=== PATIENT | male | born 1990 | race African-American/Black ===

== ENCOUNTER 2018-02-19 21:34 | Emergency (ER) | payer SELFPAY ==
[~2018-02-19] VITALS: Ht 182.9 cm; Wt 68.0 kg
[2018-02-19 21:50] LABS: BASO # 0.1 x10^3/uL (0.0-0.2); BASO % 1 % (0-3); EOS # 0.3 x10^3/uL (0.0-0.7); EOS % 3 % (0-3); HEMATOCRIT 42.8 % (39.0-53.0); HEMOGLOBIN 14.6 g/dL (13.0-17.5); LYMPH # 2.6 x10^3/uL (1.0-4.8); LYMPH % 27 % (24-48); MEAN CORPUSCULAR HEMOGLOBIN 28 pg (25-35); MEAN CORPUSCULAR HGB CONC 34 g/dL (31-37); MEAN CORPUSCULAR VOLUME 83 fL (79-100); MONO % 10 % (0-9); NEUT # 5.5 x10^3uL (1.8-7.7); NEUT % 58 % (31-73); PLATELET COUNT 266 x10^3/uL (140-400); RED BLOOD COUNT 5.15 x10^6/uL (4.30-5.70); RED CELL DISTRIBUTION WIDTH 23.9 % (11.5-14.5); WHITE BLOOD COUNT 9.5 x10^3/uL (4.0-11.0)
[2018-02-19 22:00] LABS: PROTHROMBIN TIME PATIENT 12.1 SEC (11.7-14.0)
[2018-02-19] MEDS ORDERED: fentaNYL PF VIAL 100 MCG/2 ML VIAL IV ONE (22:00)
[2018-02-19] MEDS ORDERED: ASPIRIN CHEWABLE 81 MG TABLET. PO ONE (22:00)
[2018-02-19 22:03] LABS: CALCIUM 10.2 mg/dL (8.5-10.1); CREATININE 0.9 mg/dL (0.7-1.3); GFR 99.8; POTASSIUM 3.9 mmol/L (3.5-5.1)
[2018-02-19 22:04] LABS: D-DIMER < 0.27 ug/mlFEU (0.00-0.50)
--- NOTE | 2018-02-19 22:07 | RAD ---
AP portable chest 02/19/2018. Reason for exam: Left-sided chest pain and tachycardia. No infiltrate or effusion is seen. Heart size and pulmonary vascularity appear normal. IMPRESSION: No acute findings. Electronically signed by: Anam Suh Jr., MD (02/19/2018 10:03 PM) [facility]
[2018-02-19 22:09] LABS: ALBUMIN 4.3 g/dL (3.4-5.0); ALBUMIN/GLOBULIN RATIO 0.8 (1.0-1.7); TOTAL BILIRUBIN 0.6 mg/dL (0.2-1.0); TOTAL PROTEIN 9.7 g/dL (6.4-8.2)
[2018-02-19 22:11] LABS: ANISOCYTOSIS MOD; PLT ESTIMATE ADEQUATE (ADEQUATE)
[2018-02-19 22:12] LABS: OVALOCYTES FEW
[2018-02-19 22:29] LABS: AMPHETAMINE/METHAMPHETAMINE NEG (NEG); BARBITURATES NEG (NEG); BENZODIAZEPINES NEG (NEG); CANNABINOIDS NEG (NEG); COCAINE NEG (NEG); METHADONE NEG (NEG); OPIATES NEG (NEG); PHENCYCLIDINE NEG (NEG)
--- NOTE | 2018-02-19 22:43 | PHYS DOC ---
Past Medical History Past Medical History: Hypertension, Schizophrenia Past Surgical History: No Surgical History Alcohol Use: Occasionally Additional Information: TOLD THIS RN PT. DOES NOT DRINK ETOH, TOLD DR. STEWART HE DOES DRINK ETOH Drug Use: None Adult General Chief Complaint Chief Complaint: CHEST PAIN HPI HPI Patient is a 27 year old M WITH CC OF CP SHARP PRESSURE LEFT SIDE. NONRADIATING Onset 1 hour ago while watching TV. He has a history of this in the past he was seen at [facility] last year he had a treadmill test the CT scan he tells me was normal. He says that he has mild shortness of breath no headache he denies any drugs he does smoke cigarettes. He doesn't history of schizophrenia apparently. No abdominal pain pain is nonradiating he says it is sharp worse with deep breathing. Review of Systems Review of Systems Constitutional: Denies fever or chills [] Eyes: Denies change in visual acuity, redness, or eye pain [] HENT: Denies nasal congestion or sore throat [] Respiratory: Denies cough or shortness of breath [] Cardiovascular: : Denies dysuria or hematuria [] Musculoskeletal: Denies back pain or joint pain [] Integument: Denies rash or skin lesions [] All other systems were reviewed and found to be within normal limits, except as documented in this note. Current Medications Current Medications Current Medications Medications (Trade) Dose Ordered Sig/Lulu Start Time Stop Time Status Last Admin Dose Admin Aspirin (Children'S Aspirin) 324 mg 1X ONCE 02/19/18 22:00 02/19/18 22:01 DC 02/19/18 21:59 324 MG Fentanyl Citrate (Fentanyl 2ml Vial) 50 mcg 1X ONCE 02/19/18 22:00 02/19/18 22:01 DC 02/19/18 22:00 50 MCG Allergies Allergies Allergies Coded Allergies Type Severity Reaction Last Updated Verified No Known Drug Allergies 02/19/18 No Physical Exam Physical Exam Constitutional: Well developed, well nourished, no acute distress, non-toxic appearance. [] HENT: Normocephalic, atraumatic, bilateral external ears normal, oropharynx moist, no oral exudates, nose normal. [] Eyes: PERRLA, EOMI, conjunctiva normal, no discharge. [] Neck: Normal range of motion, no tenderness, supple, no stridor. [] Cardiovascular:Heart rate regular rhythm, no murmur [] Lungs & Thorax: Bilateral breath sounds clear to auscultation []chest wall tenderness is reproducible on the left Abdomen: Bowel sounds normal, soft, no tenderness, no masses, no pulsatile masses. [] Skin: Warm, dry, no erythema, no rash. [] Back: No tenderness, no CVA tenderness. [] Extremities: No tenderness, no cyanosis, no clubbing, ROM intact, no edema. [] Neurologic: Alert and oriented X 3, normal motor function, normal sensory function, no focal deficits noted. [] Psychologic: Blunted affect BUT IS CALM AND COOPERATIVE WITH NO TANGENTIAL THIONKING. HE IS ABLE TO PROVIDE CLEAR HISTORY AND APPEARS OF SOUND MIND OVERALL Current Patient Data Vital Signs Vital Signs Date Time Temp Pulse Resp B/P (MAP) Pulse Ox O2 Delivery O2 Flow Rate FiO2 02/19/18 22:44 99 18 148/70 (96) 97 Room Air 02/19/18 21:34 98.1 98.1 Lab Values Laboratory Tests Test 02/19/18 21:40 02/19/18 22:07 White Blood Count 9.5 x10^3/uL (4.0-11.0) Red Blood Count 5.15 x10^6/uL (4.30-5.70) Hemoglobin 14.6 g/dL (13.0-17.5) Hematocrit 42.8 % (39.0-53.0) Mean Corpuscular Volume 83 fL (79-100) Mean Corpuscular Hemoglobin 28 pg (25-35) Mean Corpuscular Hemoglobin Concent 34 g/dL (31-37) Red Cell Distribution Width 23.9 % (11.5-14.5) H Platelet Count 266 x10^3/uL (140-400) Neutrophils (%) (Auto) 58 % (31-73) Lymphocytes (%) (Auto) 27 % (24-48) Monocytes (%) (Auto) 10 % (0-9) H Eosinophils (%) (Auto) 3 % (0-3) Basophils (%) (Auto) 1 % (0-3) Neutrophils # (Auto) 5.5 x10^3uL (1.8-7.7) Lymphocytes # (Auto) 2.6 x10^3/uL (1.0-4.8) Monocytes # (Auto) 1.0 x10^3/uL (0.0-1.1) Eosinophils # (Auto) 0.3 x10^3/uL (0.0-0.7) Basophils # (Auto) 0.1 x10^3/uL (0.0-0.2) Platelet Estimate Adequate (ADEQUATE) Anisocytosis Mod Ovalocytes Few Prothrombin Time 12.1 SEC (11.7-14.0) Prothrombin Time INR 0.9 (0.8-1.1) D-Dimer ([place]) < 0.27 ug/mlFEU Sodium Level 139 mmol/L (136-145) Potassium Level 3.9 mmol/L (3.5-5.1) Chloride Level 100 mmol/L (98-107) Carbon Dioxide Level 29 mmol/L (21-32) Anion Gap 10 (6-14) Blood Urea Nitrogen 10 mg/dL (8-26) Creatinine 0.9 mg/dL (0.7-1.3) Estimated GFR (Cockcroft-Gault) 99.8 BUN/Creatinine Ratio 11 (6-20) Glucose Level 123 mg/dL (70-99) H Calcium Level 10.2 mg/dL (8.5-10.1) H Total Bilirubin 0.6 mg/dL (0.2-1.0) Aspartate Amino Transferase (AST) 72 U/L (15-37) H Alanine Aminotransferase (ALT) 150 U/L (16-63) H Alkaline Phosphatase 122 U/L (46-116) H Troponin I Quantitative 0.047 ng/mL (0.000-0.055) [id number]-[id number]-Type Natriuretic Peptide 10 pg/mL (0-124) Total Protein 9.7 g/dL (6.4-8.2) H Albumin 4.3 g/dL (3.4-5.0) Albumin/Globulin Ratio 0.8 (1.0-1.7) L Ethyl Alcohol Level < 10 mg/dL (0-10) Urine Opiates Screen Neg (NEG) Urine Methadone Screen Neg (NEG) Urine Barbiturates Neg (NEG) Urine Phencyclidine Screen Neg (NEG) Urine Amphetamine/Methamphetamine Neg (NEG) Urine Benzodiazepines Screen Neg (NEG) Urine Cocaine Screen Neg (NEG) Urine Cannabinoids Screen Neg (NEG) Urine Ethyl Alcohol Neg (NEG) Laboratory Tests 02/19/18 21:40 Laboratory Tests 02/19/18 21:40 EKG EKG [] Interpretation Time: Normal sinus rhythm rate of 105. There is ST elevation very likely to be J point in V2 with an RSR prime pattern. I did review this with Dr. Rankin agrees abnormal EKG likely not STEMI criteria at this time recommends repeat EKG and lab testing. Second EKG reviewed by me at 10:30 PM did show persistent ST elevation in lead V2 only J point more clearly now. Really no significant change from previous no STEMI no reciprocal changes. Radiology/Procedures Radiology/Procedures [] Impressions: Chest x-ray interpreted by me showed no pneumothorax normal cardiac silhouette. Course & Med Decision Making Course & Med Decision Making Pertinent Labs and Imaging studies reviewed. (See chart for details) []PT HAS abnormal ekg. it was rpeeated second one was stable. i did speak with ceci who recommended serial ekg and troponins. at 1120 pm, i was made aware that patient said he wanted to leave against medical advice unfortunately he is not forthcoming with the recently wants to leave right now. However did indicate with him the nature of his decision which includes the fact that we have not yet officially ruled out a myocardial infarction that could be potentially very dangerous up to and including fatal. He does appear to understand this I could not convince him to stay here. Overall of sound mind does not appear acutely intoxicated and I feel that he is able to make this decision. He was encouraged to come back any time. Dragon Disclaimer Dragon Disclaimer This electronic medical record was generated, in whole or in part, using a voice recognition dictation system. Departure Departure Impression: Primary Impression: Chest pain Disposition: 07 AGAINST MEDICAL ADVICE Condition: STABLE Referrals: NO PCP (PCP) YASMEEN STEWART MD Feb 19, 2018 22:43
[2018-02-19 22:44] VITALS: BP 148/70
--- NOTE | 2018-02-20 08:22 | EKG ---
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
== END 2018-02-19 23:18 | disposition left against medical advice (07) ==
LOC: ER 21:34
DX: R07.89 Other chest pain (principal); R06.02 Shortness of breath; R94.31 Abnormal electrocardiogram [ECG] [EKG]; I10 Essential (primary) hypertension; F17.210 Nicotine dependence, cigarettes, uncomplicated
CPT/HCPCS: 36415; 71045; 80053; 80307; 83880; 84484; 85025; 85379; 85610; 93005; 96374; 99284; G0480; J3010

== ENCOUNTER 2018-06-16 00:15 | Emergency (ER) | payer SELFPAY ==
[~2018-06-16] VITALS: Ht 180.3 cm; Wt 68.0 kg
[2018-06-16] MEDS ORDERED: ASPIRIN 325 MG TABLET PO ONE (01:00)
[2018-06-16] MEDS ORDERED: IV NORMAL SALINE 1000ML BAG 1,000 ML IV ONE (01:00)
[2018-06-16] MEDS ORDERED: KETOROLAC 15 MG/ML VIAL. IV ONE (01:30)
--- NOTE | 2018-06-16 02:27 | PHYS DOC ---
Past Medical History Past Medical History: Hypertension, Schizophrenia Past Surgical History: No Surgical History Alcohol Use: Occasionally Drug Use: None Adult General Chief Complaint Chief Complaint: CHEST PAIN HPI HPI Patient is a 27 year old white male presents to the ED with chest pain. States that it is in the left side of his chest and started 1.5 days ago. The pain radiates up to his neck and left arm. It is a 8/10 throbbing pain. There are no aggravating or alleviating factors. He has not tried anything to help with the symptoms. Symptoms do not vary per time of day. Review of Systems Review of Systems Constitutional: Denies fever or chills [] Eyes: Denies change in visual acuity, redness, or eye pain [] HENT: Denies nasal congestion or sore throat [] Respiratory: Denies cough or shortness of breath [] Cardiovascular: Admits chest pain. Denies palpitations. GI: Denies abdominal pain, nausea, vomiting, bloody stools or diarrhea [] : Denies dysuria or hematuria [] Musculoskeletal: Denies back pain or joint pain [] Integument: Denies rash or skin lesions [] Neurologic: Denies headache, focal weakness or sensory changes [] Complete other systems were reviewed and found to be within normal limits, except as documented in this note. Current Medications Current Medications Current Medications Medications (Trade) Dose Ordered Sig/Lulu Start Time Stop Time Status Last Admin Dose Admin Aspirin (Graham Aspirin) 325 mg 1X ONCE 06/16/18 01:00 06/16/18 01:01 DC 06/16/18 02:31 325 MG Ketorolac Tromethamine (Toradol 15mg Vial) 15 mg 1X ONCE 06/16/18 01:30 06/16/18 01:31 DC 06/16/18 02:31 15 MG Lorazepam (Ativan) 1 mg 1X ONCE 06/16/18 03:30 06/16/18 03:31 DC 06/16/18 04:15 1 MG Sodium Chloride 1,000 ml @ 1,000 mls/hr 1X ONCE 06/16/18 01:00 06/16/18 01:59 DC 06/16/18 02:31 1,000 MLS/HR Allergies Allergies Allergies Coded Allergies Type Severity Reaction Last Updated Verified No Known Drug Allergies 02/19/18 No Physical Exam Physical Exam Constitutional: Well developed, well nourished, no acute distress, non-toxic appearance. [] HENT: Normocephalic, atraumatic, nose normal. [] Eyes: EOMI, conjunctiva normal, no discharge. [] Neck: Normal range of motion, no tenderness, supple, no stridor. [] Cardiovascular: Left chest wall slightly tender to palpation. Heart rate regular rhythm, no murmur [] Lungs & Thorax: Bilateral breath sounds clear to auscultation [] Abdomen: Bowel sounds normal, soft, no tenderness, no masses, no pulsatile masses. [] Skin: Warm, dry, no erythema, no rash. [] Back: No tenderness, no CVA tenderness. [] Extremities: No tenderness, no cyanosis, no clubbing, ROM intact, no edema. [] Neurologic: Alert and oriented, normal motor function, normal sensory function, no focal deficits noted. [] Psychologic: Affect normal, judgement normal, mood normal. [] Current Patient Data Vital Signs Vital Signs Date Time Temp Pulse Resp B/P (MAP) Pulse Ox O2 Delivery O2 Flow Rate FiO2 06/16/18 00:16 98.3 76 20 153/73 (99) 97 Room Air 98.3 Lab Values Laboratory Tests Test 06/16/18 02:30 06/16/18 04:15 White Blood Count 8.6 x10^3/uL (4.0-11.0) Red Blood Count 5.30 x10^6/uL (4.30-5.70) Hemoglobin 15.4 g/dL (13.0-17.5) Hematocrit 47.1 % (39.0-53.0) Mean Corpuscular Volume 89 fL (79-100) Mean Corpuscular Hemoglobin 29 pg (25-35) Mean Corpuscular Hemoglobin Concent 33 g/dL (31-37) Red Cell Distribution Width 16.0 % (11.5-14.5) H Platelet Count 294 x10^3/uL (140-400) Neutrophils (%) (Auto) 47 % (31-73) Lymphocytes (%) (Auto) 38 % (24-48) Monocytes (%) (Auto) 9 % (0-9) Eosinophils (%) (Auto) 6 % (0-3) H Basophils (%) (Auto) 1 % (0-3) Neutrophils # (Auto) 4.0 x10^3uL (1.8-7.7) Lymphocytes # (Auto) 3.2 x10^3/uL (1.0-4.8) Monocytes # (Auto) 0.8 x10^3/uL (0.0-1.1) Eosinophils # (Auto) 0.5 x10^3/uL (0.0-0.7) Basophils # (Auto) 0.1 x10^3/uL (0.0-0.2) Sodium Level 138 mmol/L (136-145) Potassium Level 3.8 mmol/L (3.5-5.1) Chloride Level 100 mmol/L (98-107) Carbon Dioxide Level 29 mmol/L (21-32) Anion Gap 9 (6-14) Blood Urea Nitrogen 16 mg/dL (8-26) Creatinine 1.0 mg/dL (0.7-1.3) Estimated GFR (Cockcroft-Gault) 106.9 BUN/Creatinine Ratio 16 (6-20) Glucose Level 89 mg/dL (70-99) Calcium Level 9.6 mg/dL (8.5-10.1) Magnesium Level 2.1 mg/dL (1.8-2.4) Total Bilirubin 1.0 mg/dL (0.2-1.0) Aspartate Amino Transferase (AST) 37 U/L (15-37) Alanine Aminotransferase (ALT) 44 U/L (16-63) Alkaline Phosphatase 111 U/L (46-116) Creatine Kinase 918 U/L (39-308) H Creatine Kinase MB (Mass) 2.0 ng/mL (0.0-3.6) Creatine Kinase MB Relative Index 0.2 % (0-4) Troponin I Quantitative 0.036 ng/mL (0.000-0.055) 0.045 ng/mL (0.000-0.055) Total Protein 9.2 g/dL (6.4-8.2) H Albumin 3.9 g/dL (3.4-5.0) Albumin/Globulin Ratio 0.7 (1.0-1.7) L Lipase 66 U/L (73-393) L Ethyl Alcohol Level < 10 mg/dL (0-10) Laboratory Tests 06/16/18 02:30 Laboratory Tests 06/16/18 02:30 EKG EKG EKG taken on 06/16/2018 at 0021. Sinus rhythm 80 bpm. A right bundle branch block noted. No STEMI appreciated Radiology/Procedures Radiology/Procedures PROCEDURE: CHEST PA & LATERAL PA and lateral chest radiographs 06/16/2018 CLINICAL HISTORY: Cough and shortness of breath. PA and 2 lateral digital radiographs of chest were obtained. Comparison study is dated 02/19/2018. The cardiac and mediastinal silhouettes are within normal limits in size and configuration. No acute pulmonary infiltrate is seen. No pleural effusion or pneumothorax is noted. The osseous structures are grossly intact. IMPRESSION: No acute abnormality is seen. Electronically signed by: Dejan Philip MD (06/16/2018 3:44 AM) [facility] Course & Med Decision Making Course & Med Decision Making Pertinent Labs and Imaging studies reviewed. (See chart for details) Patient is a 27-year-old male presents to the ED with chest pain. CXR, trops, labs pending Dragon Disclaimer Dragon Disclaimer This electronic medical record was generated, in whole or in part, using a voice recognition dictation system. Departure Departure Impression: Primary Impression: Chest pain Disposition: HOME, SELF-CARE Condition: STABLE Referrals: NO PCP (PCP) Patient Instructions: Chest Pain (Nonspecific), [id number] Problem Qualifiers Primary Impression: Chest pain Chest pain type: unspecified Qualified Codes: R07.9 - Chest pain, unspecified NAVJOT SILVA DO Jun 16, 2018 02:27
[2018-06-16 03:13] LABS: BASO # 0.1 x10^3/uL (0.0-0.2); BASO % 1 % (0-3); EOS # 0.5 x10^3/uL (0.0-0.7); EOS % 6 % (0-3); HEMATOCRIT 47.1 % (39.0-53.0); HEMOGLOBIN 15.4 g/dL (13.0-17.5); LYMPH # 3.2 x10^3/uL (1.0-4.8); LYMPH % 38 % (24-48); MEAN CORPUSCULAR HEMOGLOBIN 29 pg (25-35); MEAN CORPUSCULAR HGB CONC 33 g/dL (31-37); MEAN CORPUSCULAR VOLUME 89 fL (79-100); MONO # 0.8 x10^3/uL (0.0-1.1); MONO % 9 % (0-9); NEUT % 47 % (31-73); PLATELET COUNT 294 x10^3/uL (140-400); WHITE BLOOD COUNT 8.6 x10^3/uL (4.0-11.0)
[2018-06-16 03:23] LABS: CALCIUM 9.6 mg/dL (8.5-10.1); GFR 106.9; POTASSIUM 3.8 mmol/L (3.5-5.1)
[2018-06-16 03:29] LABS: ALBUMIN 3.9 g/dL (3.4-5.0); ALBUMIN/GLOBULIN RATIO 0.7 (1.0-1.7); MAGNESIUM 2.1 mg/dL (1.8-2.4); TOTAL PROTEIN 9.2 g/dL (6.4-8.2)
--- NOTE | 2018-06-16 03:48 | RAD ---
PA and lateral chest radiographs 06/16/2018 CLINICAL HISTORY: Cough and shortness of breath. PA and 2 lateral digital radiographs of chest were obtained. Comparison study is dated 02/19/2018. The cardiac and mediastinal silhouettes are within normal limits in size and configuration. No acute pulmonary infiltrate is seen. No pleural effusion or pneumothorax is noted. The osseous structures are grossly intact. IMPRESSION: No acute abnormality is seen. Electronically signed by: Dejan Philip MD (06/16/2018 3:44 AM) [facility] [place] [facility]
--- NOTE | 2018-06-16 03:59 | EKG ---
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
[2018-06-16 06:07] VITALS: BP 178/79
== END 2018-06-16 06:02 | disposition home or self-care (01) ==
LOC: ER 00:15
DX: R07.89 Other chest pain (principal); I10 Essential (primary) hypertension; F20.9 Schizophrenia, unspecified; Z79.82 Long term (current) use of aspirin
CPT/HCPCS: 36415; 71046; 80053; 82553; 83690; 83735; 84484; 85025; 93005; 96374; 96375; 99284; G0480; J1885; J2060; J7030